=== PATIENT | female | born 1960 | race Caucasian/White ===

== ENCOUNTER 2019-03-02 07:47 | Day surgery (SDC) | payer OTHER ==
[2019-03-02] VITALS (9 sets, daily range): BP systolic 106–137; BP diastolic 59–77; PULSE 65–84; RESP 14–25; Ht 147.3 cm; Wt 68.0 kg
[~2019-03-02] VITALS: Ht 147.3 cm; Wt 68.0 kg
[~2019-03-02 07:47] MED LIST: LISINOPRIL PO; METFORMIN PO
[2019-03-02] MEDS ORDERED: BENA1TAB14 PO (09:07)
[2019-03-02] MEDS ORDERED: SITA100T11 PO (09:08)
[2019-03-02] MEDS ORDERED: METF100010 PO (09:08)
--- NOTE | 2019-03-02 09:59 | HPN ---
Date/Time of Note Date/Time of Note DATE: 03/02/19 TIME: 09:58 Interval H&P Admission Note Pt. seen H&P reviewed: No system changes BRANDEN MCCONNELL March 02, 2019 09:59
--- NOTE | 2019-03-02 10:05 | PREAC ---
Date/Time of Note Date/Time of Note DATE: 03/02/19 TIME: 10:04 Anesthesia Eval and Record Evaluation Time Pre-Procedure Interview DATE: 03/02/19 TIME: 10:04 Age 58 Sex female NPO: 8 hrs Preoperative diagnosis ABD PAIN Planned procedure EGD Past Medical History Past Medical History: Includes Cardio: HTN Endo: Diabetes Surgery & Anesthesia Issues No known issue Meds Anticoagulation: No Beta Ben within 24 hr: No Reason Beta Ben not given: Pt. not on B-Ben Reported Medications Sitagliptin* (Januvia*) 100 Mg Tablet, 100 MG PO DAILY, #30 TAB 03/02/19 Metformin Hcl* (Metformin Hcl*) 1,000 Mg Tablet, 1000 MG PO WITH BREAKFAST, #30 TAB 03/02/19 Benazepril-Hydrochlorothiazide (Benazepril-Hydrochlorothiazide) 20-25 Mg Tablet, 1 TAB PO DAILY, #30 TAB 03/02/19 Discontinued Reported Medications [Metformin] No Conflict Check, PO DAILY 03/16/14 [Lisinopril] No Conflict Check, PO DAILY 03/16/14 Meds reviewed: Yes Allergies Coded Allergies: No Known Allergy (Unverified , 03/16/14) Allergies Reviewed: Yes Labs/Studies Labs Reviewed: Reviewed by anesthesiologist test: N/A Studies: ECG (N/A), CXR (N/A) Pre-procedure Exam Airway: Adequate mouth opening Mallampati: Mallampati I Teeth: Normal Lung: Normal Heart: Normal ASA Physical Status ASA physical status: 2 Emergency: None Planned Anesthetic General/MAC: MAC Planned Pain Management Parenteral pain med Pre-operative Attestations Prior to commencing anesthesia and surgery, the patient was re-evaluated, there was verification of: *The patient's identity *The results of appropriate recent lab work and preoperative vital signs *The above evaluation not changing prior to induction *Anesthetic plan, risk benefits, alternative and complications discussed with patient/family; questions answered; patient/family understands, accepts and wishes to proceed. DAVE HALE MD March 02, 2019 10:05
[2019-03-02] MEDS ORDERED: PROPOFOL 20 ML ONE (10:06)
[2019-03-02] MEDS ORDERED: FENTAnyl 50 MCG/ML VIAL ONE (10:06)
[2019-03-02] MEDS ORDERED: ONDANSETRON 4 MG INJ IV PRN (10:30)
--- NOTE | 2019-03-02 14:39 | PAC ---
Date/Time of Note Date/Time of Note DATE: 03/02/19 TIME: 14:38 Post-Anesthesia Notes Post-Anesthesia Note Last documented vital signs Vital Signs Date Temp Pulse Resp B/P (MAP) Pulse Ox O2 O2 Flow FiO2 Time Delivery Rate 03/02/19 96.8 68 20 127/69 96 Room Air 11:05 (88) Activity: WNL Respiratory function: WNL Cardiovascular function: WNL Mental status: Baseline Pain reasonably controlled: Yes Hydration appropriate: Yes Nausea/Vomiting absent: No DAVE HALE MD March 02, 2019 14:39
== END 2019-03-02 12:23 | disposition home or self-care (01) ==
LOC: GIL 07:47
PROVIDERS: ATTEND Internal Medicine Gastroenterology
DX: I85.00 Esophageal varices without bleeding (principal); I10 Essential (primary) hypertension; E11.9 Type 2 diabetes mellitus without complications; Z79.84 Long term (current) use of oral hypoglycemic drugs
CPT/HCPCS: 43239; 82962; 88305; 88312; J3010; Z7610